=== PATIENT | male | born 2005 | race African-American/Black ===

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

== ENCOUNTER 2023-06-06 20:18 | Emergency (ER) | payer OTHER, MEDICAID, SELFPAY ==
--- NOTE | ~2023-06-06 | XR_ITS ---
EXAMINATION: XR lumbar spine 2-3V DATE: 06/06/2023 21:02 INDICATION: Low back pain TECHNIQUE: Anteroposterior and lateral views of the lumbar spine, and cone-down lateral view of the l umbosacral junction were obtained. COMPARISON: None. FINDINGS: No fracture, dislocation, or subluxation. The vertebral body heights, alignment, and interv ertebral disc spaces are normal. The paravertebral soft tissues are unremarkable. A right pelvic calc ification likely reflects a phlebolith. IMPRESSION: 1. No acute osseous abnormality. Reviewed, dictated and finalized at location F. NE USER EXPERIENCE STRATEGIST
[2023-06-06 20:20] VITALS: BP 128/98; PULSE 74; RESP 15; TEMP 36.1; O2SAT 100
[2023-06-06] MEDS: CYCLOBENZAPRINE HCL 5 MG TABLET PO (22:44)
[2023-06-06] MEDS: ACETAMINOPHEN 500 MG TABLET 1000 MG PO (22:44)
--- NOTE | 2023-06-06 22:47 | ED.BACK ---
HPI - Back Pain/Injury General Chief Complaint: Back Pain/Injury Stated Complaint: back pain Time Seen by Provider: 06/06/23 21:35 Source: patient Mode of arrival: ambulatory Limitations: no limitations History of Present Illness HPI Narrative: Patient is a 17-year-old male who presents ED with report of low back pain. Patient reports having pain for the last several days throughout his lower back. 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 He denies any known significant injury. He has taken ibuprofen once for his pain. Otherwise has not taken anything for pain today. Denies significant radiation down the legs. Denies abdominal pain. Denies numbness, saddle anesthesia, bowel or bladder incontinence, nausea, vomiting, fevers. Related Data Allergies Allergy/AdvReac Type Severity Reaction Status Date / Time No Known Allergies Allergy Verified 03/24/22 14:40 Review of Systems Review of Systems: CONSTITUTIONAL: Denies fever, chills, or sweats. GASTROINTESTINAL: Denies incontinence, abdominal pain, nausea, vomiting, or diarrhea. GENITOURINARY: Denies incontinence, dysuria or hematuria. MUSCULOSKELETAL: See HPI. NEUROLOGIC: Denies headache, dizziness, numbness, or weakness. All systems reviewed & are unremarkable except as noted in HPI and below PMFSH Past Medical History Medical History Healthy adult male Surgical History Surgical History No history of previous surgery Family History Family History Grandparent Diabetes mellitus CHF (congestive heart failure) CKD (chronic kidney disease) Grandparent Breast cancer Brain cancer Social History Social History Smoking status: Never smoker Alcohol intake: never Substance use: never Lack of Transportation: No Lack of Food: Never True Current Housing: I Have Housing Concerned About Future Housing: No Difficulty Paying Gas/Electric Bills: No Difficulty Paying for Meds: No Currently Unemployed: Decline to Answer Education: High School Diploma/GED Difficulty w/ Childcare or Family Care: No Living arrangements: with family Additional 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 HEAD: Normocephalic, atraumatic. RESPIRATORY: Airway patent, respirations nonlabored. Clear to auscultation bilaterally, no rales, rhonchi, wheezing. CARDIOVASCULAR: Regular rate and rhythm without murmurs, rubs, or gallops. MUSCULOSKELETAL: Moves all extremities. No gross deformities. No appreciable midline spinal tenderness. Bilateral lumbar paraspinal muscular tenderness. No palpable deformities or bony step-off. Sensation intact. SKIN: Warm, dry, normal color. NEURO: A&O X3. Speech clear. Cranial nerves II-XII grossly intact. Steady gait. No ataxic movements. No focal deficits. PSYCHIATRIC: Appropriate mood and affect. Normal interaction. Course Vital Signs Vital signs: Vital Signs Temperature 97 F L 06/06/23 20:20 Pulse Rate 74 06/06/23 20:20 Respiratory Rate 15 06/06/23 20:20 Blood Pressure 128/98 H 06/06/23 20:20 Pulse Oximetry 100 06/06/23 20:20 Oxygen Delivery Room Air 06/06/23 20:20 Temperature 96.9 F L 06/06/23 23:13 Pulse Rate 71 06/06/23 23:13 Respiratory Rate 16 06/06/23 23:13 Blood Pressure 137/81 06/06/23 23:13 Pulse Oximetry 99 06/06/23 23:13 Oxygen Delivery Room Air 06/06/23 20:20 MDM - Back Pain/Injury MDM Narrative Medical decision making narrative: Patient?s pain is positional and localized to paraspinal muscles without signs of cord compression or cauda equina. Normal neurologic exams. No red flag sympt
[2023-06-06 23:13] VITALS: BP 137/81; PULSE 71; RESP 16; TEMP 36.1; O2SAT 99
== END 2023-06-06 23:15 | disposition home or self-care (01) ==
PROVIDERS: Emergency Provider Physician Assistant; PCP Nurse Practitioner
DX: S39.012A Strain of muscle, fascia and tendon of lower back, initial encounter (principal); X50.0XXA Overexertion from strenuous movement or load, initial encounter
CPT/HCPCS: 72100; 99283; A9270

== ENCOUNTER 2023-06-27 19:18 | Emergency (ER) | payer OTHER, MEDICAID, SELFPAY ==
--- NOTE | 2023-06-27 19:23 | ED.NAVMDI ---
HPI - Nausea/Vomiting/Diarrhea General Chief complaint: Nausea/Vomiting/Diarrhea Stated complaint: VOMITING/DIARRHEA Time Seen by Provider: 06/27/23 19:22 Source: patient and RN notes reviewed Mode of arrival: ambulatory Limitations: no limitations History of Present Illness HPI Narrative: 17-year-old male presents with concern for returning to work after having nausea and vomiting starting this morning. Reports he vomited couple times this morning and has had 2-3 diarrhea stools, he last had 1 just prior to arrival. He denies abdominal pain. Denies fever, body aches, chills, sweats, upper respiratory symptoms. Reports he ate out at a [employer] restaurant last night. MD elicited complaint: nausea, vomiting and diarrhea Related Data Allergies Allergy/AdvReac Type Severity Reaction Status Date / Time No Known Allergies Allergy Verified 06/27/23 19:26 Review of Systems Review of Systems: CONSTITUTIONAL: Denies malaise, chills, sweats, or fever. ENT: Denies rhinorrhea, congestion, sinus pain, otalgia or sore throat. CARDIOVASCULAR: Denies chest pain, palpitations, or edema. RESPIRATORY: Denies cough or dyspnea. GASTROINTESTINAL: Denies abdominal pain. Reports history nausea, vomiting, diarrhea GENITOURINARY: Denies dysuria or hematuria. MUSCULOSKELETAL: Denies myalgia. NEUROLOGIC: Denies headache. All systems reviewed & are unremarkable except as noted in HPI and below PMFSH Past Medical History Medical History Healthy adult male Surgical History Surgical History No history of previous surgery Family History Family History Grandparent Diabetes mellitus CHF (congestive heart failure) CKD (chronic kidney disease) Grandparent Breast cancer Brain cancer Social History Social History Smoking status: Never smoker Alcohol intake: never Substance use: never Lack of Transportation: No Lack of Food: Never True Current Housing: I Have Housing Concerned About Future Housing: No Difficulty Paying Gas/Electric Bills: No Difficulty Paying for Meds: No Currently Unemployed: Decline to Answer Education: High School Diploma/GED Difficulty w/ Childcare or Family Care: No Living arrangements: with family Additional 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 There is no relevant family history pertinent to the presenting complaint Exam Narrative: GENERAL: Well-appearing, well-nourished, and in no acute distress. HEAD: Normocephalic, atraumatic. EYES: PERRLA, conjunctivae clear, and EOMI. ENT: Nares clear, turbinates pink, no rhinorrhea or epistaxis. Mucous membranes moist. Oropharynx without edema, erythema, or lesions. Tonsils not enlarged and without exudate. NECK: Supple. No lymphadenopathy CHEST: Speaks in full sentences. No respiratory distress. HEART: Regular rate and rhythm. ABDOMEN: Soft, flat, nondistended, nontender. No guarding, rebound tenderness, or rigidity. No pulsatile masses. Bowel sounds present in all four quadrants. No organomegaly. Negative Asencio?s sign. No periumbilical tenderness. SKIN: Warm, dry, no rash. NEURO: Alert and oriented x3. PSYCH: Normal mood and affect Course Course Emergency Course: Patient is aware of diagnosis, understands and agrees to treatment plan. Anticipatory guidance given. Patient agrees to follow-up as directed and is aware of reasons to seek care at the emergency department. Portions of this record may have been created with voice recognition software Level of Care: Express Care Visit Vital Signs Vital signs: Reviewed. MDM - Nausea/Vomiting/Diarrhea MDM Narrative Me
[2023-06-27 19:26] VITALS: BP 91/57; PULSE 94; RESP 16; TEMP 36.6; O2SAT 98
[2023-06-27 19:27] VITALS: BP 91/57; PULSE 94; RESP 16; TEMP 36.6; O2SAT 98
== END 2023-06-27 19:35 | disposition home or self-care (01) ==
PROVIDERS: Emergency Provider Nurse Practitioner; PCP Nurse Practitioner
DX: R11.2 Nausea with vomiting, unspecified (principal)
CPT/HCPCS: 99213; G0463

== ENCOUNTER 2025-01-02 13:25 | Emergency (ER) | payer OTHER, SELFPAY ==
[2025-01-02 13:40] VITALS: BP 98/77; PULSE 92; RESP 20; TEMP 37.1; O2SAT 99
[2025-01-02 14:15] LABS: EDCOVIDSCREEN Negative (Negative); EDINFLUASCREEN Negative (Negative); EDINFLUBSCREEN Negative (Negative); EDSTREPNEGPOS1 Negative (Negative)
--- NOTE | 2025-01-02 14:23 | ED.URI ---
HPI - URI/Sore Throat General Chief Complaint: Upper Respiratory Infection Stated Complaint: cough and throat Time Seen by Provider: 01/02/25 14:00 Source: patient and RN notes reviewed Mode of arrival: ambulatory Limitations: no limitations History of Present Illness HPI Narrative: 19-year-old male presents to the [facility] complaining of upper respiratory symptoms for approximately 2 days. Patient reports body aches, chills, cough, voice hoarseness, sore throat, congestion, runny nose. Patient denies any fevers, earache, chest pains, difficulty breathing, nausea, vomiting, diarrhea, abdominal pain, any other symptoms. Related Data Allergies Allergy/AdvReac Type Severity Reaction Status Date / Time No Known Allergies Allergy Verified 01/02/25 14:00 Review of Systems Review of Systems: CONSTITUTIONAL: Denies fever or sweats., Positive for chills, body aches EYES: Denies visual changes, redness, or discharge. ENT: Positive for rhinorrhea, congestion, sore throat, voice hoarseness. Negative for difficulty clearing secretions, dysphagia, or otalgia. CARDIOVASCULAR: Denies chest pain, palpitations, or edema. RESPIRATORY: Positive for cough. Negative for dyspnea, wheezing, or difficulty breathing GASTROINTESTINAL: Denies abdominal pain, nausea, vomiting, or diarrhea. GENITOURINARY: Denies dysuria or hematuria. SKIN: Denies rash or itching. MUSCULOSKELETAL: Denies back pain, joint pain, or myalgia. NEUROLOGIC: Denies headache, numbness, or weakness. PSYCHIATRIC: Denies anxiety or depression. All other systems reviewed are negative, except as documented in HPI. PENDING SALE TO [facility] Past Medical History Medical History Healthy adult male Surgical History Surgical History No history of previous surgery Family History Family History Grandparent Diabetes mellitus CHF (congestive heart failure) CKD (chronic kidney disease) Grandparent Breast cancer Brain cancer Social History Social History Smoking status: Never smoker Alcohol intake: never Substance use: never Lack of Transportation: No Lack of Food: Never True Current Housing: I Have Housing Concerned About Future Housing: No Difficulty Paying Gas/Electric Bills: No Difficulty Paying for Meds: No Currently Unemployed: Decline to Answer Education: High School Diploma/GED Difficulty w/ Childcare or Family Care: No Living arrangements: with family 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 There is no relevant family history pertinent to the patient complaint. Exam Narrative: GENERAL: This is a well-nourished, well-developed adult, in no apparent distress. They are non ill-appearing, nontoxic appearing. HEAD: normocephalic, atraumatic. EYES: Sclera clear/white. Vision is grossly intact. Conjunctiva normal bilaterally. Extraocular movements intact. EARS: External ears normal, auditory canals clear and without drainage, TMs without erythema or perforation. Hearing grossly intact. NOSE: External nose normal with no obvious nasal discharge, nasal turbinates erythematous, no rhinorrhea. THROAT: Mucous membranes moist, posterior pharynx erythematous without exudate. Uvula is midline. Postnasal drip present. NECK: Neck supple, mild cervical lymphadenopathy, masses or thyromegaly. CARDIOVASCULAR: Regular rate and rhythm without murmurs, gallops, or rubs. RESPIRATORY: Clear to auscultation. Breath sounds equal bilaterally. No wheezes, rales, or rhonchi. SKIN: warm, Dry, intact with no suspicious lesions or rash, good texture and turgor. NEURO: awake, alert, and oriented to person, place and time. There were no obvious focal neurologic abnormalities. EXTREMITIES: No joint tenderness, effusion, or edema noted. BACK: Nontender without deformity. Course Course Emergency Course: Portions of this record may have been created with voice recognition software Level of Care: Express Care Visit Vital Signs Vital signs: Vital Signs Temperature 98.8 F 01/02/25 13:40 Pulse Rate 92 01/02/25 13:40 Respiratory Rate 20 01/02/25 13:40 Blood Pressure 98/77 L 01/02/25 13:40 Pulse Oximetry 99 01/02/25 13:40 Oxygen Delivery Room Air 01/02/25 13:40 Temperature 98.8 F 01/02/25 13:40 Pulse Rate 92 01/02/25 13:40 Respiratory Rate 20 01/02/25 13:40 Blood Pressure 98/77 L 01/02/25 13:40 Pulse Oximetry 99 01/02/25 13:40 Oxygen Delivery Room Air 01/02/25 13:40 MDM - URI/Sore Throat MDM Narrative Medical decision making narrative: Rapid strep, COVID, flu negative. Symptoms are likely viral etiology. Discussed physical exam findings. Advised supportive measures and signs/symptoms to go to the ER. Pt is appropriate for outpt treatment and f/u. Differential Diagnosis Differential diagnosis: Likely upper respiratory infection, sinusitis, viral infection and pharyngitis Lab Data Attestation: I reviewed the patient's lab results. Labs: Lab Results 01/02/25 Range/Units 14:13 POC Influenza A Ag Negative (Negative) POC Influenza B Ag Negative (Negative) POC SARS CoV-2 Ag Negative (Negative) POC Grp A Strep Screen Negative (Negative) Discharge Plan Discharge Clinical Impression: Upper respiratory infection Qualifiers: URI type: unspecified viral URI Qualified Code(s): J06.9 - Acute upper respiratory infection, unspecified Patient Disposition: Home Condition: Stable Instructions: Antibiotic Form, Upper Respiratory Infection (ED) Additional Instructions: Your rapid strep swab, COVID, and flu was negative today at [facility]. You will be notified in a few days if the culture comes back positive for strep, and appropriate antibiotics will be called in for you at that time. Your symptoms are likely due to a viral illness, which is not treated with antibiotics. Viral symptoms can be present for up to 10-14 days. Take DayQuil and NyQuil as needed for upper respiratory symptoms. Follow the instructions on the bottle. Do not take Tylenol if your taking DayQuil and NyQuil as it artery contains Tylenol. May take Motrin as needed for pain or fevers, fall instruction on the bottle. Rest and stay hydrated. Follow up with your PCP in 3-5 days if symptoms are not improving. Go to the ER immediately if you develop difficulty breathing or swallowing, nausea, vomiting, chest pains, any serious concerns. Patient Language: Yoruba Follow-up/Referrals: Justin Giron APRN [Primary Care Provider] - Stand Alone Forms: Work/School Release IP Time of Disposition: 14:20
== END 2025-01-02 14:22 | disposition home or self-care (01) ==
PROVIDERS: PCP Nurse Practitioner
DX: J06.9 Acute upper respiratory infection, unspecified (principal); Z20.822 Contact with and (suspected) exposure to COVID-19
CPT/HCPCS: 87081; 87426; 87804; 87880; 99212; 99213; G0463